=== PATIENT | male | born 1970 | race Hispanic/Latino ===

== ENCOUNTER 2022-02-08 08:18 | Emergency (ER) | payer OTHER, BC ==
--- NOTE | 2022-02-08 08:55 | EDPHYS ---
Physician Documentation [facility] Name: Franco Leiva Age: 51 yrs Sex: Male : 1970 Arrival Date: 02/08/2022 Time: 08:22 Bed 20 Private MD: ED Physician Santiago Russo HPI: 02/08 08:57 This 51 yrs old Male presents to ER via Ambulatory with complaints of Hip jr8 Pain, Leg Pain. 08:57 The complaints affect the left hip. Onset: The symptoms/episode began/occurred acutely, jr8 today. Modifying factors: The symptoms are alleviated by remaining still, the symptoms are aggravated by extension, weight bearing. Associated signs and symptoms: Pertinent positives: None. Severity of symptoms: At their worst the symptoms were moderate, in the emergency department the symptoms have resolved, and did so just prior to arrival. The patient has not experienced similar symptoms in the past. The patient has not recently seen a physician. Patient stated that he was getting out of a boat when he felt a pull to lateral left thigh that caused immediate pain with partial weight bearing. Stated that it has since resolved but has never had that in the past. Denies recent or remote injury to back or leg . Historical: - Allergies: 08:34 No Known Allergies; ll1 - PMHx: 08:34 Hypertensive disorder; colon CA; ll1 - PSHx: 08:34 R colectomy; ll1 - Immunization history:: Client reports receiving the 2nd dose of the Covid vaccine. - Social history:: Smoking status: Patient denies any tobacco usage or history of. ROS: 08:57 Eyes: Negative for injury, pain, redness, and discharge, ENT: Negative for injury, jr8 pain, and discharge, Neck: Negative for injury, pain, and swelling, Cardiovascular: Negative for chest pain, palpitations, and edema, Respiratory: Negative for shortness of breath, cough, wheezing, and pleuritic chest pain, Abdomen/GI: Negative for abdominal pain, nausea, vomiting, diarrhea, and constipation, Back: Negative for injury and pain, Skin: Negative for injury, rash, and discoloration, Neuro: Negative for headache, weakness, numbness, tingling, and seizure. 08:57 MS/extremity: Positive for pain, of the left leg. Exam: 08:57 Constitutional: This is a well developed, well nourished patient who is awake, alert, jr8 and in no acute distress. Cardiovascular: Regular rate and rhythm with a normal S1 and S2. No gallops, murmurs, or rubs. Normal PMI, no JVD. No pulse deficits. Respiratory: Lungs have equal breath sounds bilaterally, clear to auscultation and percussion. No rales, rhonchi or wheezes noted. No increased work of breathing, no retractions or nasal flaring. Abdomen/GI: Soft, non-tender, with normal bowel sounds. No distension or tympany. No guarding or rebound. No evidence of tenderness throughout. Back: No spinal tenderness. No costovertebral tenderness. Full range of motion. Skin: Warm, dry with normal turgor. Normal color with no rashes, no lesions, and no evidence of cellulitis. MS/ Extremity: Pulses equal, no cyanosis. Neurovascular intact. Full, normal range of motion. Slight pain to lateral left thigh with cross leg maneuver Neuro: Awake and alert, GCS 15, oriented to person, place, time, and situation. Cranial nerves II-XII grossly intact. Motor strength 5/5 in all extremities. Sensory grossly intact. Cerebellar exam normal. Normal gait. Vital Signs: 08:34 BP 127 / 76; Pulse 62; Resp 17; Temp 98.5; Pulse Ox 94% on R/A; Weight 124.74 kg; ll1 Height 5 ft. 11 in. (180.34 cm); Pain 1/10; 08:34 Body Mass Index 38.35 (124.74 kg, 180.34 cm) ll1 MDM: 08:27 Patient medically screened. jr8 08:51 Data reviewed: vital signs, nurses notes, and as a result, I will discharge patient. jr8 Data interpreted: Pulse oximetry: on room air is 95 %. Interpretation: normal. Counseling: I had a detailed discussion with the patient and/or guardian regarding: the historical points, exam findings, and any diagnostic results supporting the discharge/admit diagnosis, the need for outpatient follow up, a family practitioner, to return to the emergency department if symptoms worsen or persist or if there are any questions or concerns that arise at home. ED course: Currently patient's pain that he had is completely resolved. Unable to elicit pain with any sort of physical exam motion. Patient can bear weight and jump without any pain. Most likely had strained one of the lateral muscles of the thigh when he was maneuvering. We will put him on a couple days of anti-inflammatory and have him follow-up with family practitioner. If worse to come back any point time. Patient good with the plan at this time.. Administered Medications: No medications were administered Disposition Summary: 02/08/22 08:54 Discharge Ordered Location: Home jr8 Problem: new jr8 Symptoms: have improved jr8 Condition: Stable jr8 Diagnosis - Strain of other specified muscles, fascia and tendons at thigh level, left thigh, jr8 initial encounter Followup: jr8 - With: Private Physician - When: 1 week - Reason: Recheck today's complaints, Continuance of care, Re-evaluation by your physician Discharge Instructions: - Discharge Summary Sheet jr8 - Muscle Strain jr8 Forms: - Medication Reconciliation Form jr8 - Thank You Letter jr8 - Antibiotic Education jr8 - Prescription Opioid Use jr8 Prescriptions: - meloxicam 15 mg Oral tablet - take 1 tablet by ORAL route once daily As needed; 7 tablet; Refills: 0, Product jr8 Selection Permitted Signatures: Casey Mcconnell PA PA jr8 Joseph Cesar RN RN ll1
--- NOTE | 2022-02-08 08:55 | ER ---
Nurse's Notes [facility] Name: Franco Leiva Age: 51 yrs Sex: Male : 1970 Arrival Date: 02/08/2022 Time: 08:22 Bed 20 Private MD: Diagnosis: Strain of other specified muscles, fascia and tendons at thigh level, left thigh, initial encounter Presentation: 02/08 08:34 Chief complaint: Patient states: Sudden onset of L hip pain while getting off the boat ll1 at 7 am this morning with his luggage. Had severe pain and couldn't bear weight on his L leg for about 8 minutes. Dragged his L leg to sit down. Pain has gotten better now and can bear weight. Gait steady. Coronavirus screen: Vaccine status: Patient reports receiving the 2nd dose of the covid vaccine. Client denies travel out of the [place] in the last 14 days. At this time, the client does not indicate any symptoms associated with coronavirus-19. Ebola Screen: Patient denies travel to an Ebola-affected area in the 21 days before illness onset. Initial Sepsis Screen: Does the patient meet any 2 criteria? No. Patient's initial sepsis screen is negative. Does the patient have a suspected source of infection? No. Patient's initial sepsis screen is negative. Risk Assessment: Do you want to hurt yourself or someone else? Patient reports no desire to harm self or others. Onset of symptoms was February 08, 2022. 08:34 Method Of Arrival: Ambulatory ll1 08:34 Acuity: YVETTE 3 ll1 Triage Assessment: 08:37 General: Appears in no apparent distress. Behavior is calm, cooperative, appropriate ll1 for age. Pain: Complains of pain in L hip Pain currently is 1 out of 10 on a pain scale. Quality of pain is described as aching. Neuro: No deficits noted. Cardiovascular: No deficits noted. Respiratory: No deficits noted. Musculoskeletal: Circulation, motion, and sensation intact. Capillary refill < 3 seconds, Reports pain in L hip. Historical: - Allergies: 08:34 No Known Allergies; ll1 - PMHx: 08:34 Hypertensive disorder; colon CA; ll1 - PSHx: 08:34 R colectomy; ll1 - Immunization history:: Client reports receiving the 2nd dose of the Covid vaccine. - Social history:: Smoking status: Patient denies any tobacco usage or history of. Screenin:43 Abuse screen: Denies threats or abuse. Denies injuries from another. Nutritional [place] screening: No deficits noted. Tuberculosis screening: No symptoms or risk factors identified. Fall Risk None identified. Assessment: 08:43 Pain: Complains of pain in left hip and left leg. Musculoskeletal: Reports pain in left [place] hip and left leg Pain is 9 out of 10 on a pain scale. Vital Signs: 08:34 BP 127 / 76; Pulse 62; Resp 17; Temp 98.5; Pulse Ox 94% on R/A; Weight 124.74 kg; ll1 Height 5 ft. 11 in. (180.34 cm); Pain 1/10; 08:34 Body Mass Index 38.35 (124.74 kg, 180.34 cm) ll1 ED Course: 08:22 Patient arrived in ED. as 08:27 [facility]cconnell [facility] jr8 08:27 Santiago Russo MD is Attending Physician. jr8 08:28 Arm band placed on Patient placed in an exam room, on a stretcher. ll1 08:37 Triage completed. 1 08:43 Fe Jones, [place] is Primary Nurse. [place] 08:43 Patient has correct armband on for positive identification. Bed in low position. [place] 08:43 No provider procedures requiring assistance completed. [place] 09:17 Patient did not have IV access during this emergency room visit. [place] Administered Medications: No medications were administered Outcome: 08:54 Discharge ordered by . 8 09:17 Discharged to home [place] 09:17 Condition: good 09:17 Discharge instructions given to patient, Prescriptions given X 1. 09:17 Patient left the ED. [place] Signatures: Shanique Leiva Josh, PA PA jr8 Joseph Cesar RN RN [facility] Fe Jones RN RN [place]
[2022-02-08 10:26] VITALS: BP 127/76; TEMP 98.5; O2SAT 94
== END 2022-02-08 09:17 | disposition home or self-care (01) ==
LOC: ER 08:18
DX: S76.812A Strain of other specified muscles, fascia and tendons at thigh level, left thigh, initial encounter (principal); I10 Essential (primary) hypertension; Z85.038 Personal history of other malignant neoplasm of large intestine
CPT/HCPCS: 99282